=== PATIENT | female | born 1965 | race Caucasian/White ===

== ENCOUNTER → 2017-07-15 | Outpatient (CLI) | payer OTHER ==
[~2017-07-15] MED LIST: LIDOCAINE 1%, 20ML ONE
== END | disposition home or self-care (01) ==
LOC: CFH 12:18
PROVIDERS: ATTEND Nurse Practitioner Family
DX: N63.20 Unspecified lump in the left breast, unspecified quadrant (principal); N63.11 Unspecified lump in the right breast, upper outer quadrant; Z80.3 Family history of malignant neoplasm of breast
CPT/HCPCS: 19083; 76642; 77066; J3490; 88305

== ENCOUNTER 2017-08-07 09:25 | Day surgery (SDC) | payer OTHER ==
[~2017-08-07] VITALS: Ht 170.2 cm; Wt 68.1 kg
[~2017-08-07 09:25] MED LIST changes: +BIOT5CAP3 PO; +BUPIVACAINE/PF 0.5% ONE; +CYAN25009 PO; +EPINEPHRINE 1 MG/ML, 1ML ONE; +FOLI200T13 PO; +INUL1TAB PO; +ISOSULFAN BLUE 10 MG/ML, 5ML IV ONE; -LIDOCAINE 1%, 20ML ONE; +NIAC500T9 PO; +OMEP-110 PO; +[UNRECOGNIZED DRUG - OTHER] PO; +magnesium PO; +potassium PO
[2017-08-07] MEDS ORDERED: LACTATED RINGERS 1,000 ML IV SCH (11:45)
[2017-08-07] MEDS ORDERED: ACETAMINOPHEN 500 MG TABLET PO ONE (12:00)
[2017-08-07] MEDS ORDERED: ONDANSETRON 2MG/ML, 2ML IVPush ONE (12:00)
[2017-08-07] MEDS ORDERED: SCOPOLAMINE PATCH, 1.5MG PATCH.TD72 TD ONE (12:00)
[2017-08-07] MEDS ORDERED: MIDAZOLAM 1 MG/ML, 2ML ONE (12:28)
[2017-08-07] MEDS ORDERED: FENTANYL PF 250 MCG/5ML ONE (12:30)
[2017-08-07] MEDS ORDERED: GABAPENTIN 300 MG CAPSULE ONE (12:32)
[2017-08-07] MEDS ORDERED: LIDOCAINE-MPF 1%, 2ML ONE (12:40)
[2017-08-07] MEDS ORDERED: LIDOCAINE-MPF 1%, 2ML INFIL ONE (13:00)
[2017-08-07] MEDS ORDERED: GABAPENTIN 300 MG CAPSULE PO ONE (13:00)
[2017-08-07] MEDS ORDERED: ROCURONIUM 10 MG/ML,10ML ONE (13:32)
[2017-08-07] MEDS ORDERED: EPHEDRINE 50 MG/ML, 1ML ONE (13:32)
[2017-08-07] MEDS ORDERED: DEXAMETHASONE 4 MG/ML, 5ML ONE (13:32)
[2017-08-07] MEDS ORDERED: LIDOCAINE 4%, 4 ML SYR/CANN TP ONE (13:32)
[2017-08-07] MEDS ORDERED: ONDANSETRON 2MG/ML, 2ML ONE (13:32)
[2017-08-07] MEDS ORDERED: PROPOFOL 10 MG/ML, 20ML ONE (13:32)
[2017-08-07] MEDS ORDERED: CEFAZOLIN 1,000 MG ONE (13:32)
[2017-08-07] MEDS ORDERED: SUCCINYLCHOLINE 20 MG/ML, 10ML ONE (13:32)
[2017-08-07] MEDS ORDERED: OXYcodone 5 MG/5 ML ORAL.SOL UDC PO PRN (14:00)
[2017-08-07] MEDS ORDERED: ONDANSETRON 2MG/ML, 2ML IVPush PRN (14:00)
[2017-08-07] MEDS ORDERED: PROMETHAZINE 25 MG/ML, 1ML IV PRN (14:00)
[2017-08-07] MEDS ORDERED: MEPERIDINE/PF 25MG/0.5ML IVPush PRN (14:00)
[2017-08-07] MEDS ORDERED: ACETAMINOPHEN 325 MG TABLET PO PRN (14:00)
[2017-08-07] MEDS ORDERED: HYDROcodone/APAP 7.5-325MG/15ML UDC PO PRN (14:00)
[2017-08-07] MEDS ORDERED: morphine SULFATE 10 MG/ML, 1ML IV PRN (14:00)
[2017-08-07] MEDS ORDERED: PROMETHAZINE 12.5 MG SUPP PR PRN (14:00)
[2017-08-07] MEDS: FENTANYL PF 100 MCG/2ML IV PRN ×3 (15:50→16:00)
[2017-08-07] MEDS ORDERED: FENTANYL PF 100 MCG/2ML ONE (15:52)
[2017-08-07] MEDS ORDERED: OXYcodone 5 MG/5 ML ORAL.SOL UDC ONE (15:52)
== END 2017-08-07 18:18 | disposition home or self-care (01) ==
LOC: OR 09:25 → OUT 18:18
PROVIDERS: ATTEND Surgery
DX: C50.911 Malignant neoplasm of unspecified site of right female breast (principal); Z98.890 Other specified postprocedural states; Z72.89 Other problems related to lifestyle
CPT/HCPCS: 19285; 19301; 38525; 77065; 81025; 88305; 88307; 88329; 88331; J0171; J0330; J0690; J1100; J2250; J2405; J2704; J3010; J3490; 38792; 88341; 88342; A9541; G0461

== ENCOUNTER → 2017-11-02 | Outpatient (CLI) | payer OTHER ==
[~2017-11-02] MED LIST changes: -BUPIVACAINE/PF 0.5% ONE; -EPINEPHRINE 1 MG/ML, 1ML ONE; -ISOSULFAN BLUE 10 MG/ML, 5ML IV ONE
== END | disposition home or self-care (01) ==
LOC: ROC 07:43
PROVIDERS: ATTEND Radiology Radiation Oncology
DX: Z08 Encounter for follow-up examination after completed treatment for malignant neoplasm (principal); C50.411 Malignant neoplasm of upper-outer quadrant of right female breast; Z80.3 Family history of malignant neoplasm of breast
CPT/HCPCS: 99213; G0463

== ENCOUNTER → 2018-01-25 | Outpatient (CLI) | payer OTHER ==
[~2018-01-25] MED LIST changes: +CALCIUM PO; +CHLO1TAB PO; +CHOL500015 PO; +POTA2TAB8 PO; +TAMO20TA PO; +[UNRECOGNIZED DRUG - OTHER] PO
[2018-01-25 09:00] LABS: BASOPHILS # (AUTO) 0.04 x10^3/uL (0-0.1); BASOPHILS % (AUTO) 1 % (0-1); EOSINOPHILS # (AUTO) 0.11 x10^3/uL (0-0.4); EOSINOPHILS % (AUTO) 2 % (1-7); LYMPHOCYTES # (AUTO) 1.23 x10^3/uL (1-3.4); LYMPHOCYTES % (AUTO) 20 % (22-44); MD NO; MEAN CORPUSCULAR HEMOGLOBIN 31.6 pg (27.0-34.8); MEAN CORPUSCULAR HGB CONC 34.5 g/dL (32.4-35.8); MEAN CORPUSCULAR VOLUME 91.7 fL (80-100); MEAN PLATELET VOLUME 7.3 fL (7.4-10.4); MONOCYTES # (AUTO) 0.43 x10^3/uL (0.2-0.8); MONOCYTES % (AUTO) 7 % (2-9); NEUTROPHILS # (AUTO) 4.21 x10^3/uL (1.8-6.8); NEUTROPHILS % (AUTO) 70 % (42-75); PLATELET COUNT 295 x10^3/uL (130-400); RED BLOOD COUNT 4.38 x10^6/uL (3.82-5.3); RED CELL DISTRIBUTION WIDTH 12.9 % (9.6-15.2)
== END | disposition home or self-care (01) ==
LOC: STAR 08:01
PROVIDERS: ATTEND Specialist
DX: Z01.818 Encounter for other preprocedural examination (principal); C50.919 Malignant neoplasm of unspecified site of unspecified female breast
CPT/HCPCS: 36415; 85025

== ENCOUNTER 2018-02-10 10:20 | Inpatient (IN) | payer OTHER ==
[~2018-02-10] VITALS: Ht 170.2 cm; Wt 67.9 kg
[2018-02-10] MEDS ORDERED: GABAPENTIN 300 MG CAPSULE PO ONE (11:00)
[2018-02-10] MEDS ORDERED: ONDANSETRON ODT 8 MG PO ONE (11:00)
[2018-02-10] MEDS ORDERED: OxyconTIN ER 20 MG TAB.ER PO ONE (11:30)
[2018-02-10] MEDS ORDERED: ACETAMINOPHEN 500 MG TABLET PO ONE (11:30)
[2018-02-10 11:33] LABS: HCG UR SG 1.005 (1.003-1.030)
[2018-02-10 11:40] VITALS: BP 173/88
[2018-02-10] MEDS ORDERED: LACTATED RINGERS 1,000 ML IV SCH (12:00)
[2018-02-10] MEDS ORDERED: MIDAZOLAM 1 MG/ML, 2ML ONE (12:41)
[2018-02-10] MEDS ORDERED: PROPOFOL 10 MG/ML, 20ML ONE (12:42)
[2018-02-10] MEDS ORDERED: SODIUM CHLORIDE 0.9% PF 10ML ONE (12:42)
[2018-02-10] MEDS ORDERED: FENTANYL PF 250 MCG/5ML ONE (12:42)
[2018-02-10] MEDS ORDERED: CEFAZOLIN 1,000 MG ONE ×2 (12:43)
[2018-02-10] MEDS ORDERED: ROCURONIUM 10MG/ML,5ML ONE (12:44)
[2018-02-10] MEDS ORDERED: DEXAMETHASONE 4 MG/ML, 1ML ONE ×2 (12:44)
[2018-02-10] MEDS ORDERED: GLYCOPYRROLATE 0.4 MG/2 ML, 2ML ONE (12:44)
[2018-02-10] MEDS ORDERED: ONDANSETRON 2MG/ML, 2ML ONE ×2 (12:44→16:15)
[2018-02-10] MEDS ORDERED: NEOSTIGMINE 1 MG/ML, 10ML ONE (12:44)
[2018-02-10] MEDS ORDERED: BUPIVACAINE/PF-EPI 0.5% 1:200K ONE (13:16)
[2018-02-10] MEDS ORDERED: ONDANSETRON 2MG/ML, 2ML IV PRN ×2 (13:30→18:30)
[2018-02-10] MEDS ORDERED: LABETALOL 5MG/ML, 20ML IV PRN (13:30)
[2018-02-10] MEDS ORDERED: MEPERIDINE/PF 25MG/0.5ML IVPush PRN (13:30)
[2018-02-10] MEDS ORDERED: ACETAMINOPHEN 325 MG TABLET PO PRN (13:30)
[2018-02-10] MEDS ORDERED: MORPHINE SULFATE 4 MG/ML, 1ML IVPush PRN (13:30)
[2018-02-10] MEDS ORDERED: FENTANYL PF 100 MCG/2ML IV PRN (13:30)
[2018-02-10] MEDS ORDERED: HYDROmorphone 2 MG/ML, 1ML IV PRN ×2 (13:30→18:30)
[2018-02-10] MEDS ORDERED: PROMETHAZINE 25 MG/ML, 1ML IM PRN ×2 (13:30)
[2018-02-10] MEDS ORDERED: ONDANSETRON ODT 8 MG PO PRN (13:30)
[2018-02-10] MEDS ORDERED: PROMETHAZINE 25 MG/ML, 1ML IV PRN (13:30)
[2018-02-10] MEDS ORDERED: hydrALAzine 20 MG/ML, 1ML IV PRN (13:30)
[2018-02-10] MEDS ORDERED: OXYcodone 5 MG/5 ML ORAL.SOL UDC PO PRN (13:30)
[2018-02-10] MEDS ORDERED: FLUORESCEIN SODIUM 500 MG/5 ML ONE (13:38)
[2018-02-10] MEDS ORDERED: KETOROLAC 30 MG/1 ML ONE (15:15)
[2018-02-10] MEDS ORDERED: OXYcodone 5 MG/5 ML ORAL.SOL UDC ONE (16:07)
[2018-02-10] MEDS ORDERED: hydrALAzine 20 MG/ML, 1ML ONE (16:15)
[2018-02-10] MEDS ORDERED: MEPERIDINE/PF 50 MG/ML ONE (16:37)
[2018-02-10] MEDS ORDERED: MEPERIDINE/PF 100 MG/ML IM PRN (18:30)
[2018-02-10] MEDS: POTASSIUM CHLORIDE 20 MEQ in D5%-LACTATED RINGERS 1,000 ML IV SCH (18:30)
[2018-02-10 20:21] VITALS: BP 147/85
[2018-02-10] MEDS: SIMETHICONE 80 MG CHEW TAB PO SCH (21:12)
[2018-02-10] MEDS: KETOROLAC 30 MG/1 ML IV SCH (21:12)
[2018-02-11 00:05] VITALS: BP 127/75
[2018-02-11] MEDS: POTASSIUM CHLORIDE 20 MEQ in D5%-LACTATED RINGERS 1,000 ML IV SCH ×2 (02:35→08:57)
[2018-02-11] MEDS: KETOROLAC 30 MG/1 ML IV SCH ×2 (03:26→08:57)
[2018-02-11 04:05] VITALS: BP 128/76
[2018-02-11 07:17] VITALS: BP 144/70
[2018-02-11] MEDS: SIMETHICONE 80 MG CHEW TAB PO SCH (08:43)
[2018-02-11] MEDS: OXYcodone 5 MG/5 ML ORAL.SOL UDC PO PRN ×2 (09:58→14:07)
[2018-02-11 13:28] VITALS: BP 164/79
[2018-02-11] MEDS ORDERED: IBUP-1222 PO (14:03)
[2018-02-11] MEDS ORDERED: OXYC5CAP2 PO (14:04)
[2018-02-11] MEDS ORDERED: IBUPROFEN 600 MG TABLET PO SCH (21:00)
== END 2018-02-11 14:53 | disposition home or self-care (01) | DRG 743 ==
LOC: OUT 10:20 → 4NOR 17:31 → OUT 17:55 → DCLOUNGE 02-11 14:31
PROVIDERS: ADMIT Specialist; ATTEND Specialist
PROC: 0UT2FZZ Resection of Bilateral Ovaries, Via Natural or Artificial Opening With Percutaneous Endoscopic Assistance (ICD-10-PCS; 2018-02-10)
PROC: 0UT7FZZ Resection of Bilateral Fallopian Tubes, Via Natural or Artificial Opening With Percutaneous Endoscopic Assistance (ICD-10-PCS; 2018-02-10)
PROC: 0UT9FZZ Resection of Uterus, Via Natural or Artificial Opening With Percutaneous Endoscopic Assistance (ICD-10-PCS; principal; 2018-02-10 12:15)
DX: R87.810 Cervical high risk human papillomavirus (HPV) DNA test positive (principal); C50.811 Malignant neoplasm of overlapping sites of right female breast; Z17.0 Estrogen receptor positive status [ER+]; Z79.810 Long term (current) use of selective estrogen receptor modulators (SERMs)
CPT/HCPCS: 36415; 81025; 85014; 85018; 88307; G0378; J0690; J1100; J1885; J2175; J2250; J2405; J2704; J2710; J3010; Q0162; J0360; J7120

== ENCOUNTER 2018-03-06 17:55 | Emergency (ER) | payer OTHER ==
[~2018-03-06] VITALS: Ht 170.2 cm; Wt 68.4 kg
[~2018-03-06 17:55] MED LIST changes: +IBUP-1222 PO; +OXYC5CAP2 PO
[2018-03-06 19:11] LABS: BASOPHILS # (AUTO) 0.05 x10^3/uL (0-0.1); BASOPHILS % (AUTO) 1 % (0-1); EOSINOPHILS # (AUTO) 0.16 x10^3/uL (0-0.4); EOSINOPHILS % (AUTO) 2 % (1-7); LYMPHOCYTES # (AUTO) 2.34 x10^3/uL (1-3.4); LYMPHOCYTES % (AUTO) 31 % (22-44); MD NO; MEAN CORPUSCULAR HEMOGLOBIN 32.1 pg (27.0-34.8); MEAN CORPUSCULAR HGB CONC 35.1 g/dL (32.4-35.8); MEAN CORPUSCULAR VOLUME 91.5 fL (80-100); MEAN PLATELET VOLUME 7.3 fL (7.4-10.4); MONOCYTES # (AUTO) 0.54 x10^3/uL (0.2-0.8); MONOCYTES % (AUTO) 7 % (2-9); NEUTROPHILS # (AUTO) 4.53 x10^3/uL (1.8-6.8); NEUTROPHILS % (AUTO) 60 % (42-75); PLATELET COUNT 352 x10^3/uL (130-400); RED BLOOD COUNT 4.09 x10^6/uL (3.82-5.3); RED CELL DISTRIBUTION WIDTH 12.7 % (9.6-15.2)
[2018-03-06 19:17] LABS: ALBUMIN 3.6 g/dL (3.4-5.0); ANION GAP 9 mmol/L (5-15); CALCIUM 8.3 mg/dL (8.5-10.1); CHLORIDE 108 mmol/L (98-107); CREATININE 0.73 mg/dL (0.55-1.02)
[2018-03-06 20:12] VITALS: BP 144/77
== END 2018-03-06 20:14 | disposition home or self-care (01) ==
LOC: ED 20:08
DX: M79.652 Pain in left thigh (principal); Z90.710 Acquired absence of both cervix and uterus
CPT/HCPCS: 36415; 80048; 82040; 85025; 99285

== ENCOUNTER → 2018-09-16 | Outpatient (CLI) | payer OTHER | END | disposition home or self-care (01) | LOC: PETCFH 11:01 | PROVIDERS: ATTEND Internal Medicine Hematology & Oncology | DX: C50.411 Malignant neoplasm of upper-outer quadrant of right female breast (principal) | CPT/HCPCS: 78306; A9503 ==

== ENCOUNTER → 2019-06-20 | Outpatient (CLI) | payer OTHER | END | disposition home or self-care (01) | LOC: CFH 08:20 | PROVIDERS: ATTEND Internal Medicine Hematology & Oncology | DX: Z12.31 Encounter for screening mammogram for malignant neoplasm of breast (principal); N64.89 Other specified disorders of breast; C50.411 Malignant neoplasm of upper-outer quadrant of right female breast | CPT/HCPCS: 76641; 77063; 77067 ==

== ENCOUNTER 2020-06-16 21:29 | Emergency (ER) | payer OTHER ==
[~2020-06-16] VITALS: Ht 170.2 cm; Wt 68.0 kg
--- NOTE | 2020-06-16 21:43 | NUR ---
[employer]MENT: EKG DONE IN TRIAGE.
[2020-06-16] MEDS ORDERED: IBUPROFEN 600 MG TABLET ONE (22:26)
[2020-06-16] MEDS ORDERED: ACETAMINOPHEN 500 MG TABLET ONE (22:26)
[2020-06-16 22:28] LABS: BASOPHILS % (AUTO) 1 % (0-1); EOSINOPHILS % (AUTO) 2 % (1-7); LYMPHOCYTES % (AUTO) 29 % (22-44); MEAN CORPUSCULAR HEMOGLOBIN 30.9 pg (27.0-34.8); MEAN CORPUSCULAR HGB CONC 35.4 g/dL (32.4-35.8); MEAN PLATELET VOLUME 7.1 fL (7.4-10.4); MONOCYTES % (AUTO) 7 % (2-9); NEUTROPHILS % (AUTO) 61 % (42-75); PLATELET COUNT 316 x10^3/uL (130-400); RED BLOOD COUNT 4.25 x10^6/uL (3.82-5.3); RED CELL DISTRIBUTION WIDTH 13.7 % (9.6-15.2)
[2020-06-16 22:29] LABS: HCT (SEDRATE) 37.1 % (34.6-47.8)
[2020-06-16] MEDS ORDERED: IBUPROFEN 200 MG TABLET PO ONE (22:30)
[2020-06-16] MEDS ORDERED: ACETAMINOPHEN 500 MG TABLET PO ONE (22:30)
[2020-06-16 22:31] LABS: MD NO
[2020-06-16 22:40] LABS: ALBUMIN 3.9 g/dL (3.4-5.0); ANION GAP 6 mmol/L (5-15); CALCIUM 9.4 mg/dL (8.5-10.1); CHLORIDE 107 mmol/L (98-107); CREATININE 0.76 mg/dL (0.55-1.02)
--- NOTE | 2020-06-16 23:00 | NUR ---
pt resting in bed with family at pt side, pt has unlabored equal breaths. pt a/o x4. pt mediated per mar. pt on monitor with vss. pt has no current wants or needs at this time.
[2020-06-17 00:08] VITALS: BP 170/90
== END 2020-06-17 00:10 | disposition home or self-care (01) ==
LOC: ED 21:52
DX: R51.9 Headache, unspecified (principal); I10 Essential (primary) hypertension; R42 Dizziness and giddiness; Z85.3 Personal history of malignant neoplasm of breast; Z90.710 Acquired absence of both cervix and uterus
CPT/HCPCS: 36415; 80048; 82040; 85025; 85651; 93005; 99284

== ENCOUNTER 2020-06-22 07:02 | Outpatient (CLI) | payer OTHER | END 2020-06-22 23:59 | disposition home or self-care (01) | LOC: CFH 07:02 | PROVIDERS: ATTEND Internal Medicine Hematology & Oncology | DX: Z12.31 Encounter for screening mammogram for malignant neoplasm of breast (principal); Z12.39 Encounter for other screening for malignant neoplasm of breast; C50.411 Malignant neoplasm of upper-outer quadrant of right female breast | CPT/HCPCS: 76641; 77063; 77067 ==

== ENCOUNTER 2020-07-04 10:16 | Outpatient (CLI) | payer OTHER | END 2020-07-04 23:59 | disposition home or self-care (01) | LOC: CFH 10:16 | PROVIDERS: ATTEND Internal Medicine Hematology & Oncology | DX: C50.411 Malignant neoplasm of upper-outer quadrant of right female breast (principal); R92.8 Other abnormal and inconclusive findings on diagnostic imaging of breast | CPT/HCPCS: 76642 ==

== ENCOUNTER → 2020-07-10 | Outpatient (CLI) | payer OTHER | END | disposition home or self-care (01) | LOC: RAD 14:38 | PROVIDERS: ATTEND Genetic Counselor, MS | DX: I10 Essential (primary) hypertension (principal) | CPT/HCPCS: 93975 ==